=== PATIENT | female | born 1950 | race Caucasian/White ===

== ENCOUNTER → 2016-12-26 | Outpatient (CLI) | payer MEDICARE ==
[~2016-12-26] MED LIST: ASPI-496 PO; ATOR40TA78 PO; BUPR150T6 PO; CHLO-101 PO; CLOP75TA PO; LYSI500T3 PO; METO25TA2 PO; MULT-298 PO; Move Free PO; OMEG1CAP28 PO; PANT40TA5 PO; POTA99TA3 PO; UBID200C4 PO
== END | disposition home or self-care (01) ==
LOC: CFH 13:23
PROVIDERS: ATTEND Internal Medicine
DX: Z12.2 Encounter for screening for malignant neoplasm of respiratory organs (principal); I25.10 Atherosclerotic heart disease of native coronary artery without angina pectoris; F17.210 Nicotine dependence, cigarettes, uncomplicated
CPT/HCPCS: G0297

== ENCOUNTER 2017-10-01 21:36 | Emergency (ER) | payer MEDICARE ==
[~2017-10-01] VITALS: Ht 162.6 cm; Wt 70.0 kg
[~2017-10-01 21:36] MED LIST changes: -UBID200C4 PO; +UBID200C7 PO
[2017-10-01] MEDS ORDERED: SODIUM CHLORIDE 0.9% 1,000ML IVBOLUS ONE (22:00)
[2017-10-01] MEDS ORDERED: SODIUM CHLORIDE FLUSH 10ML SYR IVF ONE (22:00)
[2017-10-01 22:25] LABS: BASOPHILS # (AUTO) 0.08 x10^3/uL (0-0.1); BASOPHILS % (AUTO) 1 % (0-1); EOSINOPHILS # (AUTO) 0.09 x10^3/uL (0-0.4); EOSINOPHILS % (AUTO) 1 % (1-7); LYMPHOCYTES # (AUTO) 1.41 x10^3/uL (1-3.4); LYMPHOCYTES % (AUTO) 15 % (22-44); MD NO; MEAN CORPUSCULAR HEMOGLOBIN 31.3 pg (27.0-34.8); MEAN CORPUSCULAR HGB CONC 33.7 g/dL (32.4-35.8); MEAN CORPUSCULAR VOLUME 92.7 fL (80-100); MEAN PLATELET VOLUME 7.1 fL (7.4-10.4); MONOCYTES # (AUTO) 0.46 x10^3/uL (0.2-0.8); MONOCYTES % (AUTO) 5 % (2-9); NEUTROPHILS % (AUTO) 79 % (42-75); PLATELET COUNT 247 x10^3/uL (130-400); RED BLOOD COUNT 4.08 x10^6/uL (3.82-5.3); RED CELL DISTRIBUTION WIDTH 12.8 % (9.6-15.2)
[2017-10-01 22:33] LABS: INTERNATIONAL NORMALIZED RATIO 0.96 (0.93-1.1)
[2017-10-01 22:36] LABS: ALBUMIN 3.3 g/dL (3.4-5.0); ANION GAP 9 mmol/L (5-15); CALCIUM 8.4 mg/dL (8.5-10.1); CHLORIDE 114 mmol/L (98-107); CREATININE 0.89 mg/dL (0.55-1.02)
[2017-10-01 22:41] LABS: ALANINE AMINOTRANSFERASE 19 U/L (12-78); ALKALINE PHOSPHATASE 78 U/L (45-117); BILIRUBIN,TOTAL 0.2 mg/dL (0.2-1.0); TOTAL PROTEIN 6.1 g/dL (6.4-8.2); TROPONIN I < 0.015 ng/mL (0.000-0.045)
[2017-10-01 23:33] VITALS: BP 118/67
== END 2017-10-01 23:35 | disposition home or self-care (01) ==
LOC: ED 23:22
DX: R55 Syncope and collapse (principal); I10 Essential (primary) hypertension; K21.9 Gastro-esophageal reflux disease without esophagitis; F17.210 Nicotine dependence, cigarettes, uncomplicated
CPT/HCPCS: 36415; 71045; 80053; 83880; 84484; 85025; 85610; 85730; 93005; 99285

== ENCOUNTER → 2018-07-15 | Outpatient (CLI) | payer MEDICARE | END | disposition home or self-care (01) | LOC: CFH 09:50 | PROVIDERS: ATTEND Internal Medicine | DX: Z12.31 Encounter for screening mammogram for malignant neoplasm of breast (principal); M85.88 Other specified disorders of bone density and structure, other site; Z78.0 Asymptomatic menopausal state; F17.210 Nicotine dependence, cigarettes, uncomplicated; M47.814 Spondylosis without myelopathy or radiculopathy, thoracic region | CPT/HCPCS: 77063; 77067; 77080; G0297 ==

== ENCOUNTER → 2018-07-30 | Outpatient (CLI) | payer MEDICARE | END | disposition home or self-care (01) | LOC: CFH 15:18 | PROVIDERS: ATTEND Internal Medicine | DX: E04.2 Nontoxic multinodular goiter (principal) | CPT/HCPCS: 76536 ==

== ENCOUNTER → 2019-09-23 | Outpatient (CLI) | payer MEDICARE | END | disposition home or self-care (01) | LOC: EDSTATUS 07-29 12:30 → CFH 10:51 | PROVIDERS: ATTEND Internal Medicine | DX: Z12.31 Encounter for screening mammogram for malignant neoplasm of breast (principal) | CPT/HCPCS: 77063; 77067 ==

== ENCOUNTER → 2020-09-25 | Outpatient (CLI) | payer MEDICARE ==
[~2020-09-25] MED LIST changes: +BUPR150T22 PO; -BUPR150T6 PO; -PANT40TA5 PO; +PANT40TA6 PO
== END | disposition home or self-care (01) ==
LOC: CFH 08-22 13:04
PROVIDERS: ATTEND Internal Medicine
DX: Z12.31 Encounter for screening mammogram for malignant neoplasm of breast (principal)
CPT/HCPCS: 77063; 77067